=== PATIENT | female | born 1950 | race Caucasian/White ===

== ENCOUNTER 2022-11-15 10:23 | Day surgery (SDC) | payer MEDICARE, BC ==
[2022-11-15] MEDS ORDERED: Midazolam 1 MG/ML 2 ML SDV IV ONE (10:24)
[2022-11-15] MEDS ORDERED: Sodium Chloride 0.9% 10 ML Syringe IV ONE (10:24)
[2022-11-15] MEDS ORDERED: Lactated Ringers 1,000 ML IV PRN (11:00)
[2022-11-15] MEDS ORDERED: Sodium Chloride 0.9% 10 ML Syringe FLUSH PRN (11:00)
[2022-11-15 11:49] VITALS: PULSE 76
[2022-11-15 11:50] VITALS: BP 169/63
[2022-11-15] MEDS ORDERED: acetaZOLAMIDE 500 MG Cap.ER PO ONE (13:00)
== END 2022-11-15 13:35 | disposition home or self-care (01) ==
LOC: FB.SDS 10:23
PROVIDERS: ATTEND Ophthalmology
DX: H25.812 Combined forms of age-related cataract, left eye (principal); H26.491 Other secondary cataract, right eye; H43.813 Vitreous degeneration, bilateral; H25.12 Age-related nuclear cataract, left eye; E03.4 Atrophy of thyroid (acquired); G62.9 Polyneuropathy, unspecified; E78.5 Hyperlipidemia, unspecified; Z79.899 Other long term (current) drug therapy; Z79.890 Hormone replacement therapy; Z91.013 Allergy to seafood
CPT/HCPCS: 00142-QZ; A9270-GY; J2250; J3490; V2632